=== PATIENT | female | born 1970 | race Caucasian/White ===

== ENCOUNTER 2019-07-16 18:23 | Emergency (ER) | payer BC, OTHER ==
[~2019-07-16] VITALS: Ht 170.2 cm; Wt 108.0 kg
[2019-07-16] MEDS ORDERED: LISI-186 PO (18:27)
[2019-07-16] MEDS ORDERED: LORAZEPAM 1MG TABLET PO ONE (19:45)
[2019-07-16] MEDS ORDERED: KETOROLAC 60MG/2ML VIAL IM ONE (19:45)
[2019-07-16 21:59] VITALS: BP 146/87
== END 2019-07-16 22:00 | disposition home or self-care (01) ==
LOC: ER 18:23
DX: R06.4 Hyperventilation (principal); F41.9 Anxiety disorder, unspecified; I10 Essential (primary) hypertension; R55 Syncope and collapse; M25.512 Pain in left shoulder
CPT/HCPCS: 81025; 96372; 99284; J1885